=== PATIENT | female | born 1950 | race African-American/Black ===

== ENCOUNTER 2017-12-31 19:12 | Emergency (ER) | payer OTHER ==
--- NOTE | 2017-12-31 20:15 | RAD REPORT ---
EXAM DESCRIPTION: RAD - Chest Single View - 12/31/2017 8:08 pm CLINICAL HISTORY: CHEST PAIN Chest pain. COMPARISON: Abdomen 1 View (KUB) dated 09/28/2016 FINDINGS: Portable technique limits examination quality. The lungs are grossly clear. The heart is mildly prominent with a tortuous thoracic aorta. No displac ed fractures. IMPRESSION: No acute intrathoracic process suspected.
[2017-12-31 20:45] LABS: Absolute Lymphocytes (CBC) 0.8 K/uL (0.7-4.9); Absolute Monocytes 0.7 K/uL (0.1-1.3); Basophils % 0.9 % (0-1.3); Eosinophils % 6.3 % (0-4.4); Lymphocytes % 13.7 % (15.3-44.8); MCH 27.5 pg (27.0-35.0); MCV 84.2 fL (80-100); MPV 8.3 fL (7.6-11.3); Monocytes % 11.5 % (3.3-12.3); RBC Red Blood Cell Count 4.51 M/uL (3.86-4.86)
[2017-12-31 20:54] LABS: Protime INR 1.04
[2017-12-31 21:04] LABS: ALT/SGPT 24 U/L (12-78); AST/SGOT 22 U/L (15-37); Albumin 3.6 g/dL (3.4-5.0); Alkaline Phosphatase 225 U/L (45-117); BUN Blood Urea Nitrogen 14 mg/dL (7-18); Bicarbonate 28 mmol/L (21-32); Bilirubin Direct 0.2 mg/dL (0-0.2); Bilirubin Total 0.6 mg/dL (0.2-1.0); CKMB Creatine Kinase MB < 1.0 ng/mL (0.3-3.6); Creatine Phosphokinase 49 U/L (26-192); Glucose Level 90 mg/dL (74-106); Lipase 225 U/L (73-393); Magnesium 2.1 mg/dL (1.8-2.4); NT PRO-BNP 582 pg/mL (<125); Potassium 3.8 mmol/L (3.5-5.1); Protein, Total 8.6 g/dL (6.4-8.2); Sodium Level 142 mmol/L (136-145)
[2017-12-31] MEDS ORDERED: FAMOTIDINE 20 MG/2 ML VIAL IV ONE (22:14)
--- NOTE | 2017-12-31 22:16 | ER ---
Nurse's Notes [facility] Name: Madyson Lee Age: 67 yrs Sex: Female : 1950 Arrival Date: 12/31/2017 Time: 19:21 Bed 2 Private MD: Diagnosis: Chest pain, unspecified-atypical Presentation: 12/31 19:22 Presenting complaint: EMS states: toned out for report of pt having chest pain when bb swallowing for 3 to 4 days. Transition of care: patient was not received from another setting of care. Onset of symptoms was December 28, 2017. Risk Assessment: Do you want to hurt yourself or someone else? Patient reports no desire to harm self or others. Initial Sepsis Screen: Does the patient meet any 2 criteria? No. Patient's initial sepsis screen is negative. Does the patient have a suspected source of infection? No. Patient's initial sepsis screen is negative. Care prior to arrival: None. 19:22 Method Of Arrival: EMS: [facility] bb 19:22 Acuity: VINAY 3 bb Triage Assessment: 21:00 General: Behavior is calm, cooperative, appropriate for age. tl1 Historical: - Allergies: 19:24 No Known Allergies; bb - PMHx: 19:24 BLIND; Glaucoma; Hypertension; Hypothyroidism; bb - PSHx: 19:24 Hysterectomy; Cholecystectomy; eyes; bb - Immunization history:: Adult Immunizations up to date. - Social history:: Smoking status: Patient/guardian denies using tobacco, Patient/guardian denies using alcohol, street drugs. - Ebola Screening: : No symptoms or risks identified at this time. Screenin:26 Abuse screen: Denies threats or abuse. Nutritional screening: No deficits noted. bb Tuberculosis screening: No symptoms or risk factors identified. Fall Risk Secondary diagnosis (15 points) impaired mobility, IV access (20 points). Ambulatory Aid- None/Bed Rest/Nurse Assist (0 pts). Gait- Impaired (20 pts.). Mental Status- Oriented to own ability (0 pts). Total Luong Fall Scale indicates High Risk Score (45 or more points). Fall prevention measures have been instituted. Side Rails Up X 2 Family Present and informed to notify staff if the need to leave the bedside As available patient and family educated on Fall Prevention Program and Strategies. Assessment: 19:30 General: Appears in no apparent distress. uncomfortable. Pain: Complains of pain in tl1 chest Pain does not radiate. Pain began. 21:29 Pain: Pain began 2-3 days ago. Neuro: Level of Consciousness is awake, alert, obeys tl1 commands. Cardiovascular: Reports chest pain, when swallowing for approx 3 days Capillary refill < 3 seconds Patient's skin is warm and dry. Respiratory: Airway is patent Trachea midline Respiratory effort is even, unlabored, Respiratory pattern is regular, Breath sounds are clear bilaterally. GI: Abdomen is non-distended, Bowel sounds present X 4 quads. Abd is soft and non tender X 4 quads. : No signs and/or symptoms were reported regarding the genitourinary system. EENT: No signs and/or symptoms were reported regarding the EENT system. 22:27 Reassessment: Patient and/or family updated on plan of care and expected duration. Pain tl1 level reassessed. Patient is alert, oriented x 3, equal unlabored respirations, skin warm/dry/pink. Patient denies pain at this time. Patient states feeling better. Patient states symptoms have improved. Vital Signs: 19:24 BP 146 / 67; Pulse 65; Resp 16 S; Temp 98.6(O); Pulse Ox 100% on R/A; Weight 92.08 kg bb (R); Height 5 ft. 6 in. (167.64 cm) (R); Pain 5/10; 21:00 BP 153 / 75; Pulse 59; Resp 17; Pulse Ox 100% on R/A; mw2 21:21 BP 155 / 66; Pulse 59; Resp 17; Pulse Ox 99% on R/A; tl1 22:13 BP 157 / 73; Pulse 58; Resp 18; Pulse Ox 100% on R/A; tl1 22:27 BP 147 / 71; Pulse 61; Resp 16; Temp 98.5; Pulse Ox 100% ; Pain 0/10; tl1 19:24 Body Mass Index 32.76 (92.08 kg, 167.64 cm) kelsey ED Course: 19:21 Patient arrived in ED. bb 19:23 EKG done, by ED staff, reviewed by Alexis Jara MD. kelsey 19:24 Triage completed. bb 19:24 Arm band placed on Patient placed in an exam room, on a stretcher, on pulse oximetry. bb EKG completed in triage. Results shown to MD. Family accompanied patient. 19:26 Patient has correct armband on for positive identification. Placed in gown. Bed in low bb position. Call light in reach. Side rails up X2. Adult w/ patient. monitor tech on. Pulse ox on. NIBP on. 19:29 Naldo Tran NP is PHCP. pm1 19:30 Alexis Jara MD is Attending Physician. pm1 20:08 XRAY Chest (1 view) In Process Unspecified. EDMS 20:30 Inserted saline lock: 20 gauge in left antecubital area, using aseptic technique. Blood tl1 collected. Patient maintains SpO2 saturation greater than 95% on room air. 21:05 Kaila Obando, RN is Primary Nurse. tl1 21:05 No provider procedures requiring assistance completed. tl1 22:18 Martha Greer MD is Referral Physician. pm1 22:37 IV discontinued, intact, bleeding controlled, No redness/swelling at site. Pressure tl1 dressing applied. Administered Medications: 22:00 Drug: Pepcid 20 mg Route: IVP; Site: left antecubital; tl1 22:37 Follow up: Response: No adverse reaction; Marked relief of symptoms tl1 Outcome: 22:16 Discharge ordered by MD. pm1 22:37 Discharged to home via wheelchair, with family. tl1 22:37 Condition: stable 22:37 Discharge instructions given to patient, family, Instructed on discharge instructions, follow up and referral plans. medication usage, Demonstrated understanding of instructions, follow-up care, medications. 22:39 Patient left the ED. tl1 Signatures: Dispatcher [employer] EDMS Edda Montiel RN RN bb Kaila Obando RN RN tl1 Naldo Tran NP CEMENT FINISHER APPRENTICE pm1 Jayson Hernandez 2
--- NOTE | 2017-12-31 22:17 | EDPHYS ---
Physician Documentation [facility] Name: Madyson Lee Age: 67 yrs Sex: Female : 1950 Arrival Date: 12/31/2017 Time: 19:21 Bed 2 Private MD: ED Physician Alexis Jara HPI: 12/31 20:00 This 67 yrs old Black Female presents to ER via EMS with complaints of Chest Pain. pm1 01/01 01:09 The patient or guardian reports chest pain that is located primarily in the mid-sternal pm1 area. Onset: 4 day(s) ago. The pain does not radiate. Associated signs and symptoms: Pertinent negatives: abdominal pain, cough, diaphoresis, headache, nausea, shortness of breath, syncope, vomiting. The chest pain is described as burning. Duration: The patient or guardian reports multiple episodes, that have now resolved. Modifying factors: the symptoms are aggravated by eating, Sensation like food is getting stuck there. Historical: - Allergies: 12/31 19:24 No Known Allergies; bb - PMHx: 19:24 BLIND; Glaucoma; Hypertension; Hypothyroidism; bb - PSHx: 19:24 Hysterectomy; Cholecystectomy; eyes; bb - Immunization history:: Adult Immunizations up to date. - Social history:: Smoking status: Patient/guardian denies using tobacco, Patient/guardian denies using alcohol, street drugs. - Ebola Screening: : No symptoms or risks identified at this time. ROS: 01/01 01:09 Constitutional: Negative for fever, chills, and weight loss, Eyes: Negative for injury, pm1 pain, redness, and discharge, ENT: Negative for injury, pain, and discharge, Neck: Negative for injury, pain, and swelling. Respiratory: Negative for shortness of breath, cough, wheezing, and pleuritic chest pain, Abdomen/GI: Negative for abdominal pain, nausea, vomiting, diarrhea, and constipation, Back: Negative for injury and pain, : Negative for injury, bleeding, discharge, and swelling, MS/Extremity: Negative for injury and deformity, Skin: Negative for injury, rash, and discoloration, Neuro: Negative for headache, weakness, numbness, tingling, and seizure. Cardiovascular: Positive for chest pain, with swallowing food, Negative for edema, orthopnea, palpitations. Exam: 01:09 Constitutional: This is a well developed, well nourished patient who is awake, alert, pm1 and in no acute distress. Head/Face: Normocephalic, atraumatic. ENT: Nares patent. No nasal discharge, no septal abnormalities noted. Tympanic membranes are normal and external auditory canals are clear. Oropharynx with no redness, swelling, or masses, exudates, or evidence of obstruction, uvula midline. Mucous membranes moist. Neck: Trachea midline, no thyromegaly or masses palpated, and no cervical lymphadenopathy. Supple, full range of motion without nuchal rigidity, or vertebral point tenderness. No Meningismus. Chest/axilla: Normal chest wall appearance and motion. Nontender with no deformity. No lesions are appreciated. Cardiovascular: Regular rate and rhythm with a normal S1 and S2. No gallops, murmurs, or rubs. Normal PMI, no JVD. No pulse deficits. Respiratory: Lungs have equal breath sounds bilaterally, clear to auscultation and percussion. No rales, rhonchi or wheezes noted. No increased work of breathing, no retractions or nasal flaring. Abdomen/GI: Soft, non-tender, with normal bowel sounds. No distension or tympany. No guarding or rebound. No evidence of tenderness throughout. Back: No spinal tenderness. No costovertebral tenderness. Full range of motion. Skin: Warm, dry with normal turgor. Normal color with no rashes, no lesions, and no evidence of cellulitis. MS/ Extremity: Pulses equal, no cyanosis. Neurovascular intact. Full, normal range of motion. 01:09 Neuro: Orientation: is normal, Motor: moves all fours. Vital Signs: 12/31 19:24 BP 146 / 67; Pulse 65; Resp 16 S; Temp 98.6(O); Pulse Ox 100% on R/A; Weight 92.08 kg bb (R); Height 5 ft. 6 in. (167.64 cm) (R); Pain 5/10; 21:00 BP 153 / 75; Pulse 59; Resp 17; Pulse Ox 100% on R/A; mw2 21:21 BP 155 / 66; Pulse 59; Resp 17; Pulse Ox 99% on R/A; tl1 22:13 BP 157 / 73; Pulse 58; Resp 18; Pulse Ox 100% on R/A; tl1 22:27 BP 147 / 71; Pulse 61; Resp 16; Temp 98.5; Pulse Ox 100% ; Pain 0/10; tl1 19:24 Body Mass Index 32.76 (92.08 kg, 167.64 cm) bb MDM: 19:30 Patient medically screened. pm1 22:15 Data reviewed: vital signs. Data interpreted: Pulse oximetry: on room air is 100 %. pm1 Interpretation: normal. Counseling: I had a detailed discussion with the patient and/or guardian regarding: the historical points, exam findings, and any diagnostic results supporting the discharge/admit diagnosis, radiology results, to return to the emergency department if symptoms worsen or persist or if there are any questions or concerns that arise at home. 12/31 19:33 Order name: Basic Metabolic Panel; Complete Time: 21:21 tl1 12/31 19:33 Order name: CBC with Diff; Complete Time: 21:21 tl1 12/31 19:33 Order name: Ckmb; Complete Time: 21:21 tl1 12/31 19:33 Order name: CPK; Complete Time: 21:21 tl1 12/31 19:33 Order name: LFT's; Complete Time: 21:21 tl1 12/31 19:33 Order name: Magnesium; Complete Time: 21:21 tl1 12/31 19:33 Order name: NT PRO-BNP; Complete Time: 21:21 tl1 12/31 19:33 Order name: PT-INR; Complete Time: 21:21 tl1 12/31 19:33 Order name: Ptt, Activated; Complete Time: 21:21 tl1 12/31 19:33 Order name: Troponin (emerg Dept Use Only); Complete Time: 21:21 tl1 12/31 19:33 Order name: XRAY Chest (1 view); Complete Time: 21:21 tl1 12/31 19:42 Order name: Lipase; Complete Time: 21:21 EDMS 12/31 19:33 Order name: EKG; Complete Time: 19:33 tl1 12/31 19:33 Order name: Cardiac monitoring; Complete Time: 19:50 tl1 12/31 19:33 Order name: EKG - Nurse/Tech; Complete Time: 19:50 tl1 12/31 19:33 Order name: IV Saline Lock; Complete Time: 20:59 tl1 12/31 19:33 Order name: Labs collected and sent; Complete Time: 20:59 tl1 12/31 19:33 Order name: O2 Per Protocol; Complete Time: 19:50 tl1 12/31 19:33 Order name: O2 Sat Monitoring; Complete Time: 19:50 tl1 Administered Medications: 22:00 Drug: Pepcid 20 mg Route: IVP; Site: left antecubital; tl1 22:37 Follow up: Response: No adverse reaction; Marked relief of symptoms tl1 Disposition: 01/01 08:06 Co-signature as Attending Physician, Alexis Jara MD I agree with the assessment and cezar plan of care. Disposition: 12/31/17 22:16 Discharged to Home. Impression: Chest pain, unspecified - atypical. - Condition is Stable. - Discharge Instructions: Nonspecific Chest Pain. - Medication Reconciliation Form, Thank You Letter form. - Follow up: Emergency Department; When: As needed; Reason: Worsening of condition. Follow up: Private Physician; When: 2 - 3 days; Reason: Recheck today's complaints, Continuance of care, Re-evaluation by your physician. Follow up: Martha Greer MD; When: 2 - 3 days; Reason: Recheck today's complaints, Continuance of care, Re-evaluation by your physician. - Problem is new. - Symptoms have improved. Signatures: Dispatcher [employer] Alexis Britton MD MD cha Ballard, Brenda RN RN bb Kaila Obando RN RN tl1 Naldo Tran NP COW TESTER pm1 Corrections: (The following items were deleted from the chart) 12/31 19:41 19:37 LIPASE+C.LAB.BRZ ordered. [facility] 22:18 22:16 12/31/2017 22:16 Discharged to Home. Impression: Chest pain, unspecified - pm1 atypical. Condition is Stable. Forms are Medication Reconciliation Form, Thank You Letter, Antibiotic Education, Prescription Opioid Use. Follow up: Emergency Department; When: As needed; Reason: Worsening of condition. Follow up: Private Physician; When: 2 - 3 days; Reason: Recheck today's complaints, Continuance of care, Re-evaluation by your physician. Problem is new. Symptoms have improved. pm1 22:39 22:18 12/31/2017 22:16 Discharged to Home. Impression: Chest pain, unspecified - tl1 atypical. Condition is Stable. Discharge Instructions: Nonspecific Chest Pain. Forms are Medication Reconciliation Form, Thank You Letter. Follow up: Emergency Department; When: As needed; Reason: Worsening of condition. Follow up: Private Physician; When: 2 - 3 days; Reason: Recheck today's complaints, Continuance of care, Re-evaluation by your physician. Follow up: Martha Greer; When: 2 - 3 days; Reason: Recheck today's complaints, Continuance of care, Re-evaluation by your physician. Problem is new. Symptoms have improved. pm1
--- NOTE | 2018-01-01 06:49 | EKG ---
Test Date: 2017-12-31 Test Time: 19:23:23 Control Analyst: BOBBY MEASUREMENT RESULTS: Intervals: Rate: 63 [place]: 186 QRSD: 78 QT: 418 QTc: 427 [place]: P: 41 [place]: 186 QRS: 14 T: 12 INTERPRETIVE STATEMENTS: Normal sinus rhythm Low voltage QRS Borderline ECG No previous ECG available for comparison Electronically Signed On 01-01-18 06:48:07 CDT by Reynaldo Martin
== END 2017-12-31 22:39 | disposition home or self-care (01) ==
LOC: ER 19:12
DX: R07.89 Other chest pain (principal); I10 Essential (primary) hypertension; E03.9 Hypothyroidism, unspecified
CPT/HCPCS: 36415; 71045; 80048; 80076; 82550; 82553; 83690; 83735; 83880; 84484; 85025; 85610; 85730; 93005; 96374; 99285

== ENCOUNTER 2018-12-22 09:31 | Emergency (ER) | payer OTHER ==
--- NOTE | 2018-12-22 10:33 | EKG ---
Test Date: 2018-12-22 Test Time: 10:02:54 Batch Unit Treater: JOON MEASUREMENT RESULTS: Intervals: Rate: 66 RI: 158 QRSD: 80 QT: 408 QTc: 427 [place]: P: 39 RI: 158 QRS: 29 T: 37 INTERPRETIVE STATEMENTS: Normal sinus rhythm Normal ECG Compared to ECG 12/31/2017 19:23:23 No significant changes Electronically Signed On 12-22-18 10:33:06 CDT by Reynaldo Martin
--- NOTE | 2018-12-22 11:20 | RAD REPORT ---
EXAM DESCRIPTION: US - Extrem Venous W Compress Juan Antonio - 12/22/2018 10:31 am CLINICAL HISTORY: Pain;Swelling Bilateral leg edema and swelling. COMPARISON: No comparisonsNo comparisons TECHNIQUE: Real-time sonographic interrogation of the left and right lower extremity deep venous sys tems was performed. FINDINGS: Normal compressibility, flow augmentation, phasic flow and spontaneous flow is identified in both the left and right lower extremity deep venous systems. IMPRESSION: No sonographic evidence of left or right lower extremity deep venous thrombosis.
--- NOTE | 2018-12-22 11:28 | RAD REPORT ---
EXAM DESCRIPTION: RAD - Chest Single View - 12/22/2018 11:23 am CLINICAL HISTORY: SWELLING Chest pain. COMPARISON: Chest Single View dated 12/31/2017; Abdomen 1 View (KUB) dated 09/28/2016 FINDINGS: Portable technique limits examination quality. Mild interstitial pulmonary edema seen. The heart is mildly prominent size. No displaced fractures. IMPRESSION: Mild CHF versus volume overload.
[2018-12-22 11:47] LABS: Basophils % 0.7 % (0-1.3); Hematocrit 37.8 % (36.0-45.0); Lymphocytes % 17.8 % (15.3-44.8); MPV 8.5 fL (7.6-11.3)
--- NOTE | 2018-12-22 11:47 | RAD REPORT ---
EXAM DESCRIPTION: US - Lower Extremity Arterial Bilat - 12/22/2018 10:57 am CLINICAL HISTORY: Pain;Swelling COMPARISON: No comparisons TECHNIQUE: Bilateral lower extremity arterial Doppler examination was performed with miguel kevin Ankle-brachial indices was not requested FINDINGS: Right lower extremity arterial system is triphasic. Amplitude levels are within normal limits. Left lower extremity arterial system is largely biphasic to monophasic. No high-grade stenosis or occlusion. IMPRESSION: Left lower extremity arterial system is largely biphasic to monophasic. This may indicat e the presence of inflow lesion involving the left iliac vasculature.
[2018-12-22 11:48] LABS: Protime INR 1.03
[2018-12-22 12:05] LABS: ALT/SGPT 36 U/L (12-78); AST/SGOT 26 U/L (15-37); Albumin 3.7 g/dL (3.4-5.0); Alkaline Phosphatase 309 U/L (45-117); BUN Blood Urea Nitrogen 15 mg/dL (7-18); Bicarbonate 27 mmol/L (21-32); Bilirubin Direct 0.2 mg/dL (0-0.2); Bilirubin Total 0.7 mg/dL (0.2-1.0); Glucose Level 76 mg/dL (74-106); Magnesium 2.2 mg/dL (1.8-2.4); NT PRO-BNP 290 pg/mL (<125); Potassium 3.8 mmol/L (3.5-5.1); Protein, Total 8.7 g/dL (6.4-8.2); Sodium Level 140 mmol/L (136-145); Troponin (Emerg Dept Use Only) < 0.02 ng/mL (0.0-0.045)
--- NOTE | 2018-12-22 13:15 | ER ---
Nurse's Notes [facility] Name: Madyson Lee Age: 68 yrs Sex: Female : 1950 Arrival Date: 12/22/2018 Time: 09:34 Bed 19 Private MD: Jerad Obrien Diagnosis: Edema, unspecified-bilateral lower extremity Presentation: 12/22 09:45 Presenting complaint: Bilateral lower extremity swelling x 3 days, bilateral foot pain hb x 1 month. Transition of care: patient was not received from another setting of care. Onset of symptoms is unknown. Risk Assessment: Do you want to hurt yourself or someone else? Patient reports no desire to harm self or others. Initial Sepsis Screen: Does the patient meet any 2 criteria? No. Patient's initial sepsis screen is negative. Does the patient have a suspected source of infection? No. Patient's initial sepsis screen is negative. Care prior to arrival: None. 09:45 Method Of Arrival: Wheelchair hb 09:45 Acuity: VINAY 3 hb Historical: - Allergies: 09:48 No Known Allergies; tw2 - Home Meds: 09:48 prednisolone acetate 1 % Opht drps 1 drop 2 times per day [Active]; mupirocin 2 % tw2 topical oint 3 times per day [Active]; atenolol 50 mg Oral tab 1 tab once daily [Active]; levothyroxine 88 mcg tab 1 tab once daily [Active]; atorvastatin 20 mg oral tab 1 tab once daily [Active]; furosemide 20 mg Oral tab 1 tab once daily [Active]; vitamin E 200 unit Oral cap [Active]; - PMHx: 09:48 BLIND; Glaucoma; Hypertension; Hypothyroidism; tw2 - PSHx: 09:48 Hysterectomy; Cholecystectomy; eyes; tw2 - Immunization history:: Adult Immunizations up to date, Adult Immunizations. - Social history:: Smoking status: Patient/guardian denies using tobacco, Smoking status: . - Ebola Screening: : No symptoms or risks identified at this time Patient denies exposure to infectious person. Screenin:47 Abuse screen: Denies threats or abuse. Denies injuries from another. Nutritional hb screening: No deficits noted. Tuberculosis screening: No symptoms or risk factors identified. Fall Risk Total Luong Fall Scale indicates Low Risk Score (25-44 pts). Fall prevention measures have been instituted. Side Rails Up X 2 Frequent Obs/Assesments occuring Family Present and informed to notify staff if they need to leave bedside As available Patient and Family Educated on Fall Prevention Program and strategies. Assessment: 09:51 General: Appears in no apparent distress. obese, Behavior is calm, cooperative, tw2 appropriate for age. Pain: Complains of pain in left lateral ankle. Neuro: Level of Consciousness is awake, alert, obeys commands, Oriented to person, place, time, situation. Cardiovascular: Heart tones S1 S2 Patient's skin is warm and dry. Cardiovascular: Edema is 2+ to left midcalf, left ankle, left foot, left toes, right midcalf, right ankle, right foot and right toes. Respiratory: Airway is patent Respiratory effort is even, unlabored, Respiratory pattern is regular, symmetrical, Breath sounds are clear bilaterally. GI: Abdomen is round non-distended, obese, Bowel sounds present X 4 quads. : No signs and/or symptoms were reported regarding the genitourinary system. EENT: No signs and/or symptoms were reported regarding the EENT system. Derm: redness noted to lateral left ankle with swelling present b/l LE. Musculoskeletal: Range of motion: intact in all extremities, Swelling present in right leg and left leg. 11:17 Reassessment: Patient appears in no apparent distress at this time. No changes from tw2 previously documented assessment. Patient and/or family updated on plan of care and expected duration. Pain level reassessed. Patient is alert, oriented x 3, equal unlabored respirations, skin warm/dry/pink. 11:18 Reassessment: provider notified unsuccessful attempt at IV's by myself and Clay Walter. tw2 Vital Signs: 09:46 BP 152 / 81; Pulse 70; Resp 16; Temp 98; Pulse Ox 100% ; Weight 117.93 kg; Height 5 ft. hb 3 in. (160.02 cm); Pain 10/10; 11:16 BP 113 / 53; Pulse 62; Resp 17; Pulse Ox 98% on R/A; tw2 12:00 BP 160 / 64; Pulse 55; Resp 17; Pulse Ox 100% on R/A; tw2 13:03 BP 159 / 65; Pulse 65; Resp 16; Pulse Ox 100% ; ms 09:46 Body Mass Index 46.06 (117.93 kg, 160.02 cm) hb ED Course: 09:30 Missed attempt(s): 22 gauge in right antecubital area. Bleeding controlled, band aid tw2 applied, catheter tip intact. 09:34 Patient arrived in ED. mr 09:35 Jerad Obrien MD is Private Physician. mr 09:38 Maty Pineda FNP-C [facility]. kb 09:38 Colby Ellsworth MD is Attending Physician. kb 09:42 Bed in low position. Call light in reach. Side rails up X2. Adult w/ patient. Pulse ox tw2 on. NIBP on. Warm blanket given. 09:45 Elizabeth Astorga, RN is Primary Nurse. tw2 09:46 Triage completed. hb 09:46 Arm band placed on. hb 09:53 No provider procedures requiring assistance completed. tw2 10:16 Radiology exam delayed due to pt in ultrasound when cxr was attempted. jb2 10:32 US Extremity Venous W Compression Juan Antonio In Process Unspecified. EDMS 10:58 US LE Arterial Bilateral In Process Unspecified. EDMS 11:23 XRAY Chest (1 view) In Process Unspecified. EDMS 13:24 IV discontinued, intact, bleeding controlled, No redness/swelling at site. Pressure tw2 dressing applied. Administered Medications: No medications were administered Outcome: 13:13 Discharge ordered by . kb 13:24 Discharged to home via wheelchair, with family. tw2 13:24 Condition: stable 13:24 Discharge instructions given to patient, family, Instructed on discharge instructions, follow up and referral plans. Demonstrated understanding of instructions, follow-up care. 13:24 Patient left the ED. tw2 Signatures: Dispatcher [employer] EDMS Maty Pineda FNP-C FNP-Primo Cely MorrisSamuel jb2 Saba Reardon ms, Heather, RN RN Elizabeth Astorga RN RN tw2
--- NOTE | 2018-12-22 13:16 | EDPHYS ---
Physician Documentation [facility] Name: Madyson Lee Age: 68 yrs Sex: Female : 1950 Arrival Date: 12/22/2018 Time: 09:34 Bed 19 Private MD: Jerad Obrien ED Physician Colby Ellsworth HPI: 12/22 09:57 This 68 yrs old Black Female presents to ER via Wheelchair with complaints of Foot kb Pain, Feet Swelling. 09:57 The patient presents with pain, that is chronic, swelling, tenderness. The complaints kb affect the right leg and left leg. Context: the patient can partially bear weight, the patient is able to ambulate. Onset: The symptoms/episode began/occurred 4 month(s) ago. Modifying factors: The symptoms are alleviated by nothing. the symptoms are aggravated by palpation. Associated signs and symptoms: Pertinent positives: calf tenderness, swelling, Pertinent negatives fever, nausea, numbness, rash, tingling, vomiting, warmth, weakness. Treatment prior to arrival includes: prescription medications, bactroban. Severity of symptoms: At their worst the symptoms were severe, in the emergency department the symptoms are unchanged. The patient has not experienced similar symptoms in the past. The patient has been recently seen by a physician:. Pt reports lower extremity pain and swelling for 4-5 months. States she has seen Dr Obrien for this several times and he gave her a topical antibiotic cream and told her to elevate her legs. Came today because she wants a second opinion. Historical: - Allergies: 09:48 No Known Allergies; tw2 - Home Meds: 09:48 prednisolone acetate 1 % Opht drps 1 drop 2 times per day [Active]; mupirocin 2 % tw2 topical oint 3 times per day [Active]; atenolol 50 mg Oral tab 1 tab once daily [Active]; levothyroxine 88 mcg tab 1 tab once daily [Active]; atorvastatin 20 mg oral tab 1 tab once daily [Active]; furosemide 20 mg Oral tab 1 tab once daily [Active]; vitamin E 200 unit Oral cap [Active]; - PMHx: 09:48 BLIND; Glaucoma; Hypertension; Hypothyroidism; tw2 - PSHx: 09:48 Hysterectomy; Cholecystectomy; eyes; tw2 - Immunization history:: Adult Immunizations up to date, Adult Immunizations. - Social history:: Smoking status: Patient/guardian denies using tobacco, Smoking status: . - Ebola Screening: : No symptoms or risks identified at this time Patient denies exposure to infectious person. ROS: 09:56 Constitutional: Negative for fever, chills, and weight loss, Cardiovascular: Negative kb for chest pain, palpitations, and edema, Respiratory: Negative for shortness of breath, cough, wheezing, and pleuritic chest pain, Abdomen/GI: Negative for abdominal pain, nausea, vomiting, diarrhea, and constipation, Skin: Negative for injury, rash, and discoloration, Neuro: Negative for headache, weakness, numbness, tingling, and seizure. 09:56 MS/extremity: Positive for pain, swelling, of the bilateral lower extremities. Exam: 09:53 Constitutional: This is a well developed, well nourished patient who is awake, alert, kb and in no acute distress. Head/Face: Normocephalic, atraumatic. Chest/axilla: Normal chest wall appearance and motion. Nontender with no deformity. No lesions are appreciated. Cardiovascular: Regular rate and rhythm with a normal S1 and S2. No gallops, murmurs, or rubs. Normal PMI, no JVD. No pulse deficits. Respiratory: Lungs have equal breath sounds bilaterally, clear to auscultation and percussion. No rales, rhonchi or wheezes noted. No increased work of breathing, no retractions or nasal flaring. Abdomen/GI: Soft, non-tender, with normal bowel sounds. No distension or tympany. No guarding or rebound. No evidence of tenderness throughout. Neuro: Awake and alert, GCS 15, oriented to person, place, time, and situation. Cranial nerves II-XII grossly intact. Motor strength 5/5 in all extremities. Sensory grossly intact. Cerebellar exam normal. Normal gait. 09:53 Cardiovascular: Edema: 2+ edema to level of bilateral lower extremities. 09:53 Skin: discoloration to bilateral feet, slight redness to bilateral lower extremities, skin appears to be peeling off in some areas. Vital Signs: 09:46 BP 152 / 81; Pulse 70; Resp 16; Temp 98; Pulse Ox 100% ; Weight 117.93 kg; Height 5 ft. hb 3 in. (160.02 cm); Pain 10/10; 11:16 BP 113 / 53; Pulse 62; Resp 17; Pulse Ox 98% on R/A; tw2 12:00 BP 160 / 64; Pulse 55; Resp 17; Pulse Ox 100% on R/A; tw2 13:03 BP 159 / 65; Pulse 65; Resp 16; Pulse Ox 100% ; ms 09:46 Body Mass Index 46.06 (117.93 kg, 160.02 cm) hb MDM: 09:47 Patient medically screened. kb 09:53 Data reviewed: vital signs, nurses notes. Data interpreted: Pulse oximetry: on room air kb is 100 %. Interpretation: normal. 13:13 Counseling: I had a detailed discussion with the patient and/or guardian regarding: the kb historical points, exam findings, and any diagnostic results supporting the discharge/admit diagnosis, lab results, radiology results, the need for outpatient follow up, a family practitioner, to return to the emergency department if symptoms worsen or persist or if there are any questions or concerns that arise at home. 12/22 09:52 Order name: Basic Metabolic Panel kb 12/22 09:52 Order name: CBC with Diff kb 12/22 09:52 Order name: LFT's; Complete Time: 12:07 kb 12/22 09:52 Order name: Magnesium; Complete Time: 12:07 kb 12/22 09:52 Order name: NT PRO-BNP; Complete Time: 12:07 kb 12/22 09:52 Order name: PT-INR; Complete Time: 11:51 kb 12/22 09:52 Order name: Troponin (emerg Dept Use Only); Complete Time: 12:07 kb 12/22 09:52 Order name: XRAY Chest (1 view); Complete Time: 11:30 kb 12/22 09:52 Order name: EKG; Complete Time: 09:54 kb 12/22 09:52 Order name: Cardiac monitoring; Complete Time: 09:54 kb 12/22 09:52 Order name: US Extremity Venous W Compression Juan Antonio; Complete Time: 11:28 kb 12/22 09:52 Order name: US LE Arterial Bilateral; Complete Time: 11:51 kb 12/22 09:53 Order name: Basic Metabolic Panel; Complete Time: 12:07 EDMS 12/22 09:53 Order name: CBC with Automated Diff; Complete Time: 11:51 EDMS 12/22 09:52 Order name: EKG - Nurse/Tech; Complete Time: 10:00 kb 12/22 09:52 Order name: IV Saline Lock; Complete Time: 12:53 kb 12/22 09:52 Order name: Labs collected and sent; Complete Time: 12:53 kb 12/22 09:52 Order name: O2 Per Protocol; Complete Time: 09:54 kb 12/22 09:52 Order name: O2 Sat Monitoring; Complete Time: 09:54 kb Administered Medications: No medications were administered Disposition: 17:19 Co-signature as Attending Physician, Colby Ellsworth MD. rn Disposition: 12/22/18 13:13 Discharged to Home. Impression: Edema, unspecified - bilateral lower extremity. - Condition is Stable. - Discharge Instructions: Edema, [id number], Peripheral Edema. - Medication Reconciliation Form, Thank You Letter, Antibiotic Education, Prescription Opioid Use form. - Follow up: Emergency Department; When: As needed; Reason: Worsening of condition. Follow up: Private Physician; When: 2 - 3 days; Reason: Recheck today's complaints, Continuance of care, Re-evaluation by your physician. Signatures: Dispatcher [employer] EDPA Maty Pineda, LEAD SECTION SUPERVISOR-C LEAD SECTION SUPERVISOR-Ckb Colby Ellsworth MD MD rn Baxter, Heather, RN RN hb Wise, Tara, RN RN tw2 Corrections: (The following items were deleted from the chart) 11:52 11:51 Counseling: I had a detailed discussion with the patient and/or guardian regarding: the historical points, exam findings, and any diagnostic results supporting the discharge/admit diagnosis, the need for outpatient follow up, a manager casino, to return to the emergency department if symptoms worsen or persist or if there are any questions or concerns that arise at home, 13:24 13:13 12/22/2018 13:13 Discharged to Home. Impression: Edema, unspecified - bilateral tw2 lower extremity. Condition is Stable. Forms are Medication Reconciliation Form, Thank You Letter, Antibiotic Education, Prescription Opioid Use. Follow up: Emergency Department; When: As needed; Reason: Worsening of condition. Follow up: Private Physician; When: 2 - 3 days; Reason: Recheck today's complaints, Continuance of care, Re-evaluation by your physician. kb
== END 2018-12-22 13:24 | disposition home or self-care (01) ==
LOC: ER 09:31
DX: R60.0 Localized edema (principal); I10 Essential (primary) hypertension; E03.9 Hypothyroidism, unspecified
CPT/HCPCS: 36415; 71045; 80048; 80076; 83735; 83880; 84484; 85025; 85610; 93005; 93925; 93970; 99283